=== PATIENT | female | born 1985 | race Caucasian/White ===

== ENCOUNTER 2023-03-29 14:15 | Emergency (ER) | payer OTHER, SELFPAY ==
[2023-03-29 14:16] VITALS: BP 132/84; PULSE 77; RESP 18; TEMP 36.1; O2SAT 100; BMI 34.2
[2023-03-29 14:39] VITALS: BP 118/76; PULSE 71; RESP 10; O2SAT 100
--- NOTE | 2023-03-29 15:00 | EDS_ITS ---
HPI History of Present Illness Chief Complaint: Chest Pain Informant: patient Narrative Narrative: Patient presents with epigastric lower chest area pain. Patient states that she was feeling fine yesterday. She ate fish tacos and then she started getting this pain. It would come and cramping waves. It would come up and down. It lasted for some hours. She had some nausea but no vomiting. No shortness of breath or diaphoresis. No radiation or migration of the pain. She has a little bit today but it is less. She still has no associated shortness of breath lightheadedness or diaphoresis. She had one episode of nausea when she was driving over here today. She has no history of DVT or PE. 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 Last trip was about 4 months ago. No family history of DVT or PE. She has never had high blood pressure high cholesterol or diabetes. She has not smoked in almost 20 years. No family history of heart disease. Her father had some heart issue that showed up on a blood test but he has never had stents or bypass or a heart attack. PFSH PFSH Allergy/AdvReac Type Severity Reaction Status Date / Time acetaminophen [From Percocet] AdvReac Itching Verified 03/29/23 14:18 azithromycin AdvReac Abd Verified 03/29/23 14:18 cramps/diarrhea oxycodone [From Percocet] AdvReac Itching Verified 03/29/23 14:18 Family History Father Heart disease Grandmother Myocardial infarction Grandfather Myocardial infarction Surgical History Hx of cholecystectomy Previous section Social History household members: family housing: house Smoking Status: Former smoker ROS ROS ED ROS Narrative A complete review of systems was performed and is negative except as documented in the history of present illness. Some specific details below. Constitutional: No recent fevers or chills. EYE: No discharge, visual complaints, or pain. ENT: No difficulty swallowing. No swelling. No pain. Some mild reflux symptoms with this. CV: See history of present illness. Respiratory: Not short of breath or coughing. No hemoptysis. GI: Some epigastric area pain with some mild nausea but no vomiting diarrhea. No blood in stool. : No frequency dysuria or hematuria. Musculoskeletal: No recent trauma. No pains. No swelling. Skin: No rash. Nondiaphoretic. Neuro: No weakness or numbness. Endocrine: No polyuria or polydipsia. EXAM Physical Exam Narrative Exam Narrative: CONSTITUTIONAL: Patient is nontoxic in appearance. The patient looks comfortable. Work of breathing looks normal. HEENT: No notable trauma. Mucous membranes moist. No thrush EYES: No conjunctival injection. No pallor. NECK:No JVD. No stridor. CARDIOVASCULAR: Regular rate. Regular rhythm. No notable murmur. No JVD. Tones are not muffled. Peripheral pulses are normal x4. RESPIRATORY: No respiratory distress. Breathing is unlabored. No wheezes. No rhonchi. No rales. No pain with a deep breath. No chest wall tenderness. GASTROINTESTINAL: Not distended. Bowel sounds are normal. Mild epigastric area tenderness. But no guarding. No rebound. No palpable mass. No bruit is heard. GENITOURINARY: No tenderness over the bladder. No CVA tenderness. MUSCULOSKELETAL: Atraumatic. No peripheral edema. No cord. No tenderness along the deep venous system. No asymmetry. No distended veins. Few superficial varicosities. NEUROLOGICAL: Patient is alert and appropriate. No focal deficit noted. SKIN: No noted rashes. No diaphoresis. PSYCHIATRIC: Patient is calm. Mood is appropriate. Const Vital Signs: 03/29/23 14:16 03/29/23 14:39 03/29/23 15:01 Temperature 97 F L Temperature Source Temporal Pulse Rate 77 71 Respiratory Rate 18 10 L Blood Pressure 132/84 H 118/76 Blood Pressure Mean 100 90 Pulse Ox 100 100 100 Oxygen Delivery Method Room Air Room Air Room Air MDM MDM MDM Narrative Medical decision making narrative: CBC shows minimal anemia that I do not think is the source of her symptoms. White count platelets are normal. Patient's electrolytes are normal other than slight elevation in creatinine. This may be due to some mild dehydration but she can drink more fluids. Lipase is normal. Troponin is still unmeasurable despite some symptoms since yesterday. Patient will try Nexium. Her symptoms are not there now. But it is all epigastric. She has had some GERD symptoms. It started after eating tacos. Follow-up with her primary physician are appropriate. If she gets dyspnea lightheadedness and vomiting worsening pain fevers she should return. Lab Data Attestation: I reviewed the patient's lab results. Labs: Laboratory Results - last 24 hr 03/29/23 14:53 WBC 6.9 RBC 4.06 L Hgb 11.6 L Hct 36.0 L MCV 88.7 MCH 28.6 MCHC 32.2 RDW Std Deviation 40.0 RDW Coeff of Familia 12.3 Plt Count 294 MPV 9.9 Immature Gran % (Auto) 0.300 Neut % (Auto) 56.5 Lymph % (Auto) 33.7 [place] % (Auto) 7.7 Eos % (Auto) 0.9 Baso % (Auto) 0.9 Absolute Neuts (auto) 3.9 Absolute Lymphs (auto) 2.32 Nucleated RBC % 0 Sodium 140 Potassium 4.0 Chloride 107 Carbon Dioxide 30.0 Anion Gap 3 L BUN 15 Creatinine 1.10 H Estim Creat Clear Calc 62.40 Est GFR (MDRD) Af Amer 71 Est GFR (MDRD) Non-Af 59 L BUN/Creatinine Ratio 13.6 Glucose 97 Calcium 8.8 Troponin I High Sens < 3 L Lipase 37 EKG Initial EKG: Comments: My independent interpretation the patient's EKG done for epiga stric and chest pain shows a normal sinus rhythm with overall rate of 67. No ectopy. No acute ST elevation or depression. GA interval, QRS duration and QTc normal. Discharge Plan Triage Chief Complaint: Chest Pain ED Provider: Zohaib Gusman Dx/Rx/DC Orders Clinical Impression: Chest pain, Acute epigastric pain Instructions: ED Chest Pain, Uncertain Cause Primary Care Provider: Tonya Roy Referrals: [facility] Doctor,Out of [Non-Staff] - Activity Restrictions/Additional Instructions: Follow-up with your doctor if not better in several days. You may try Nexium or Prilosec [id number]. Disposition Disposition: Home, Self Care
[2023-03-29 15:01] VITALS: O2SAT 100
--- NOTE | 2023-03-29 15:02 | RAD_ITS ---
INDICATION: chest pain EXAMINATION/TECHNIQUE: X-RAY - XR Chest 1 View COMPARISON: No relevant prior comparison study available FINDINGS: LINES/DEVICES: None. LUNGS: No consolidation, edema or effusion. No pneumothorax. MEDIASTINUM AND CARDIOVASCULAR STRUCTURES: Cardiac silhouette not enlarged. Central airways and mediastinal contour are unremarkable. BONES AND SOFT TISSUES: Unremarkable. RAD/Chest 1 View (Portable) IMPRESSION: No radiographic evidence of acute cardiopulmonary disease. Electronically Signed: Albin Boss MD at 16:23 EDT ,
[2023-03-29 15:27] LABS: Absolute Lymphocyte Count 2.32 X10^3/uL (0.83-4.51); Absolute Neutrophil Count 3.9 X10^3/uL (2.0-7.7); Basophil# 0.06 X10^3/uL; Basophil% 0.9 % (0-1); Eosinophil# 0.06 X10^3/uL; Eosinophils% 0.9 % (0-5); Hemoglobin 11.6 g/dL (12.0-15.0); Lymphocyte # 2.32 X10^3/ul (0.83-4.51); Lymphocyte % 33.7 % (19-41); Mean Corp Hgb Conc 32.2 g/dL (32-36); Mean Corpuscular Hgb 28.6 pg (27.0-32.0); Mean Corpuscular Volume 88.7 fL (81-99); Mean Platelet Vol. 9.9 fl (6.2-12.0); Monocyte# 0.53 X10^3/uL; Monocyte% 7.7 % (0-10); NRBC Flagged by Analyzer 0 % (0-5); Neutrophil # 3.89 X10^3/uL (2.7-7.7); Neutrophil % 56.5 % (47-70); Platelet Count 294 K/mm3 (150-450); RBC Distribution Width CV 12.3 % (11.6-14.6); Red Blood Count 4.06 M/mm3 (4.2-5.4); White Blood Count 6.9 K/mm3 (4.4-11.0)
[2023-03-29 15:47] LABS: Anion Gap 3 (5-15); BUN 15 mg/dL (7-18); BUN/Creat Ratio 13.6 RATIO (10-20); Calcium,Total 8.8 mg/dL (8.5-10.1); Chloride 107 mmol/L (98-107); EST Glomerular Filtration Rate 59 mL/min (>60); Est Glom Filt Rate - Afr Amer 71 mL/min (>60); Glucose 97 mg/dL (74-106); Lipase 37 U/L (13-75); Sodium Level 140 mmol/L (136-145); Troponin-I HS < 3 pg/mL (3.0-54.0)
[2023-03-29 16:26] VITALS: PULSE 72; RESP 12; O2SAT 100
== END 2023-03-29 16:27 | disposition home or self-care (01) ==
PROVIDERS: Emergency Provider Emergency Medicine; PCP Family Medicine; Visit Provider Emergency Medicine
DX: R07.9 Chest pain, unspecified (principal); R10.13 Epigastric pain; K21.9 Gastro-esophageal reflux disease without esophagitis; Z87.891 Personal history of nicotine dependence
CPT/HCPCS: 71045; 80048; 83690; 84484; 85025; 93005; 99284; A4216